=== PATIENT | male | born 1925 | race Caucasian/White ===

== ENCOUNTER → 2016-09-05 | Outpatient (CLI) | payer MEDICARE, MEDICAID ==
[2016-09-05 15:14] LABS: BUN 34 mg/dL (7-18)
[2016-09-05 15:16] LABS: AMPHETAMINES/METAMPHETAMINES NEGATIVE ng/mL (<1000)
[2016-09-05 15:19] LABS: GFR (ESTIMATED) 28 ML/MIN (>60)
== END ==
LOC: LAB 14:07
PROVIDERS: Emergency Medicine
DX: I10 Essential (primary) hypertension (principal); Z79.899 Other long term (current) drug therapy

== ENCOUNTER → 2017-01-26 | Outpatient (CLI) | payer MEDICARE, MEDICAID ==
[2017-01-26 15:34] LABS: AMPHETAMINES/METAMPHETAMINES NEGATIVE ng/mL (<1000)
== END ==
LOC: LAB 13:59
PROVIDERS: Physician Assistant
DX: M54.5 Low back pain (principal)